=== PATIENT | female | born 1980 | race Caucasian/White ===

== ENCOUNTER 2017-03-19 06:02 | Day surgery (SDC) | payer BC ==
[2017-03-19 07:17] VITALS: BMI 27.1
--- NOTE | 2017-03-19 07:44 | HP ---
Admitting History and Physical - Admission History of Present Illness: patient is a 36 y/o female with a past medical history of IDDM, hypothyroidism , and bipolar disorder. Patient presents for ect, she was recently admitted to [facility] for psychosis and discharged on 03/16/17. She reports received 10 ect treatments at [place]. Patient reports improvement in symptoms since starting ect. she denies any suicidal or homicidal ideation, visual or auditory hallucinations. History Source: Patient Limitations to Obtaining History: No Limitations - Past Medical History ...LMP: 03/09/17 ...: No Endocrine: Yes: Diabetes Mellitus, Hypothyroidism - Past Surgical History Past Surgical History: Yes: None - Smoking History Smoking history: Never smoked Have you smoked in the past 12 months: No - Alcohol/Substance Use Hx Alcohol Use: No - Social History Usual Living Arrangement: Yes: With Spouse ADL: Independent Occupation: recepionsist on medical leave History of Recent Travel: No Home Medications - Allergies Allergies/Adverse Reactions: Allergies Allergy/AdvReac Type Severity Reaction Status Date / Time No Known Drug Allergies Allergy Verified 03/19/17 06:53 - Home Medications Home Medications: Ambulatory Orders Bupropion HCl [Wellbutrin Xl] 300 mg PO DAILY 03/19/17 Insulin (Novolog) [Novolog Flexpen] 50 units SQ DAILY 03/19/17 Lamotrigine [Lamotrigine ER] 50 mg PO DAILY 03/19/17 Levothyroxine Sodium [Synthroid] 88 mcg PO DAILY 03/19/17 Lurasidone HCl [Latuda] 40 mg PO HS 03/19/17 Family Disease History - Family Disease History Family History: Denies Review of Systems - Review of Systems Constitutional: reports: No Symptoms Eyes: reports: No Symptoms HENT: reports: No Symptoms Neck: reports: No Symptoms Cardiovascular: reports: No Symptoms Respiratory: reports: No Symptoms Gastrointestinal: reports: No Symptoms Genitourinary: reports: No Symptoms Musculoskeletal: reports: No Symptoms Integumentary: reports: No Symptoms Neurological: reports: No Symptoms Endocrine: reports: No Symptoms Hematology/Lymphatic: reports: No Symptoms Psychiatric: reports: No Symptoms Physical Examination Vital Signs: Vital Signs Temperature 97.9 F 03/19/17 07:01 Pulse Rate 68 03/19/17 07:01 Respiratory Rate 18 03/19/17 07:01 Blood Pressure 96/60 03/19/17 07:01 O2 Sat by Pulse Oximetry (%) 97 03/19/17 07:01 Constitutional: Yes: Well Nourished, No Distress, Calm Eyes: Yes: WNL, Conjunctiva Clear, EOM Intact HENT: Yes: WNL, Atraumatic, Normocephalic Neck: Yes: WNL, Supple, Trachea Midline Cardiovascular: Yes: WNL, Regular Rate and Rhythm, S1, S2 Respiratory: Yes: WNL, Regular, CTA Bilaterally Gastrointestinal: Yes: WNL, Normal Bowel Sounds, Soft ...Rectal Exam: Yes: Deferred Renal/: Yes: WNL Musculoskeletal: Yes: WNL Extremities: Yes: WNL Edema: No Peripheral Pulses WNL: Yes Peripheral Pulses: Left Radial: 4+, Right Radial: 4+, Left Doralis Pedis: 3+, Right Dorsalis Pedis: 3+, Left Femoral: 3+, Right Femoral: 3+ Integumentary: Yes: WNL Neurological: Yes: WNL, Alert, Oriented ...Motor Strength: WNL Psychiatric: Yes: WNL, Alert, Oriented Labs: reviewed 02/19/17 Imaging - Results EKG: Report Reviewed, Image Reviewed, Other (nsr no ischemic changes) Assessment/Plan patient is a 36 y/o female that presents for ect, labs and ekg reviewed patient is medically optimized for procedure informed consent, risks/benefits to be obtained by Dr Fair
[2017-03-19] MEDS ORDERED: ACETAMINOPHEN 325 MG TABLET (FP) PO PRN (09:52)
[2017-03-19] MEDS ORDERED: ONDANSETRON 4 MG/2 ML VIAL IVPUSH PRN (09:52)
[2017-03-19 11:04] VITALS: TEMP 98.1
[2017-03-19 11:05] VITALS: BP 102/62; PULSE 84
== END 2017-03-19 10:35 | disposition home or self-care (01) ==
LOC: FECT 06:02
PROVIDERS: ATTEND Psychiatry & Neurology Psychiatry
PROC: GZB4ZZZ Other Electroconvulsive Therapy (ICD-10-PCS; principal; 2017-03-19 08:15)
DX: F33.2 Major depressive disorder, recurrent severe without psychotic features (principal)
CPT/HCPCS: 84703; 90870; 94760

== ENCOUNTER 2017-03-23 05:47 | Day surgery (SDC) | payer BC ==
[2017-03-19 17:21] VITALS: BMI 27.1
[2017-03-23] MEDS ORDERED: KETAMINE HCL 500 MG/10 ML VIAL ONE (07:31)
[2017-03-23] MEDS ORDERED: ACETAMINOPHEN 325 MG TABLET (FP) PO PRN (07:56)
[2017-03-23] MEDS ORDERED: LACTATED RINGERS SOLUTION 1,000 ML IV SCH (08:00)
[2017-03-23 08:56] VITALS: TEMP 98
[2017-03-23 08:58] VITALS: BP 112/71; PULSE 62
== END 2017-03-23 08:50 | disposition home or self-care (01) ==
LOC: FECT 05:47
PROVIDERS: ATTEND Psychiatry & Neurology Psychiatry
PROC: GZB4ZZZ Other Electroconvulsive Therapy (ICD-10-PCS; principal; 2017-03-23 08:15)
DX: F33.2 Major depressive disorder, recurrent severe without psychotic features (principal)
CPT/HCPCS: 84703; 90870; 94760

== ENCOUNTER 2017-03-29 06:05 | Day surgery (SDC) | payer BC ==
[2017-03-27 13:11] VITALS: BMI 27.1
[2017-03-29] MEDS ORDERED: KETAMINE HCL 500 MG/10 ML VIAL ONE (07:01)
[2017-03-29] MEDS ORDERED: LACTATED RINGERS SOLUTION 1,000 ML IV SCH (07:15)
[2017-03-29] MEDS ORDERED: MIDAZOLAM HCL 2 MG/2 ML SINGLE DOSE VIAL ONE (07:18)
[2017-03-29] MEDS ORDERED: ACETAMINOPHEN/CAFFEINE/BUTALBITAL 1 TAB ONE (07:49)
[2017-03-29 08:08] VITALS: TEMP 97.6
[2017-03-29 08:52] VITALS: BP 115/73; PULSE 76
== END 2017-03-29 08:55 | disposition home or self-care (01) ==
LOC: FECT 06:05
PROVIDERS: ATTEND Psychiatry & Neurology Psychiatry
PROC: GZB4ZZZ Other Electroconvulsive Therapy (ICD-10-PCS; principal; 2017-03-29 08:00)
DX: F33.2 Major depressive disorder, recurrent severe without psychotic features (principal)
CPT/HCPCS: 84703; 90870; 94760

== ENCOUNTER 2017-04-05 05:42 | Day surgery (SDC) | payer BC ==
[2017-04-04 13:49] VITALS: BMI 27.1
[2017-04-05 06:17] VITALS: TEMP 98
[2017-04-05] MEDS ORDERED: ACETAMINOPHEN/CAFFEINE/BUTALBITAL 1 TAB ONE (07:01)
[2017-04-05] MEDS ORDERED: MIDAZOLAM HCL 2 MG/2 ML SINGLE DOSE VIAL ONE ×2 (07:15→07:18)
[2017-04-05] MEDS ORDERED: LACTATED RINGERS SOLUTION 1,000 ML IV SCH (07:15)
[2017-04-05] MEDS ORDERED: KETAMINE HCL 500 MG/10 ML VIAL ONE (07:19)
[2017-04-05 08:48] VITALS: BP 99/74; PULSE 76
== END 2017-04-05 08:35 | disposition home or self-care (01) ==
LOC: FECT 05:42
PROVIDERS: ATTEND Psychiatry & Neurology Psychiatry
PROC: GZB4ZZZ Other Electroconvulsive Therapy (ICD-10-PCS; principal; 2017-04-05 08:00)
DX: F33.2 Major depressive disorder, recurrent severe without psychotic features (principal)
CPT/HCPCS: 84703; 90870; 94760

== ENCOUNTER 2017-04-20 05:45 | Day surgery (SDC) | payer BC ==
[2017-04-06 11:26] VITALS: BMI 27.1
--- NOTE | 2017-04-20 08:06 | HP ---
Admitting History and Physical - Admission History of Present Illness: Patient is a 36 y/o female with a past medical history of IDDM, hypothyroidism, and bipolar disorder. Patient presents for ect, her last ect was 04/05/17. Patient reports feeling much improved since starting ECT, she denies any changes in medications. Patient denies any recent illness or hospitalizations. She denies any suicidal or homicidal ideation, visual or auditory hallucinations. 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 Travel: No Home Medications - Allergies Allergies/Adverse Reactions: Allergies Allergy/AdvReac Type Severity Reaction Status Date / Time No Known Drug Allergies Allergy Verified 03/19/17 06:53 - Home Medications Home Medications: Ambulatory Orders Bupropion HCl [Wellbutrin Xl] 300 mg PO DAILY 03/19/17 Insulin (Novolog) [Novolog Flexpen -] 50 units SQ DAILY 03/19/17 Lamotrigine [Lamotrigine ER] 50 mg PO DAILY 03/19/17 Levothyroxine Sodium [Synthroid] 88 mcg PO DAILY 03/19/17 Lurasidone HCl [Latuda] 40 mg PO HS 03/19/17 Family Disease History - Family Disease History Family History: Denies Review of Systems - Review of Systems Constitutional: reports: No Symptoms Eyes: reports: No Symptoms HENT: reports: No Symptoms Neck: reports: No Symptoms Cardiovascular: reports: No Symptoms Respiratory: reports: No Symptoms Gastrointestinal: reports: No Symptoms Genitourinary: reports: No Symptoms Musculoskeletal: reports: No Symptoms Integumentary: reports: No Symptoms Neurological: reports: No Symptoms Endocrine: reports: No Symptoms Hematology/Lymphatic: reports: No Symptoms Psychiatric: reports: No Symptoms Physical Examination Constitutional: Yes: Well Nourished, No Distress, Calm Eyes: Yes: WNL, Conjunctiva Clear, EOM Intact HENT: Yes: WNL, Atraumatic, Normocephalic Neck: Yes: WNL, Supple, Trachea Midline Cardiovascular: Yes: WNL, Regular Rate and Rhythm, S1, S2 Respiratory: Yes: WNL, Regular, CTA Bilaterally Gastrointestinal: Yes: WNL, Normal Bowel Sounds, Soft ...Rectal Exam: Yes: Deferred Renal/: Yes: WNL Breast(s): Yes: WNL Musculoskeletal: Yes: WNL Extremities: Yes: WNL Edema: No Peripheral Pulses WNL: Yes Peripheral Pulses: Left Radial: 4+, Right Radial: 4+, Left Doralis Pedis: 3+, Right Dorsalis Pedis: 3+, Left Femoral: 3+, Right Femoral: 3+ Integumentary: Yes: WNL Neurological: Yes: WNL, Alert, Oriented ...Motor Strength: WNL Psychiatric: Yes: WNL, Alert, Oriented Labs: reviewed 02/23 Imaging - Results EKG: Report Reviewed, Image Reviewed, Other (nsr) Assessment/Plan patient is a 36 y/o female that presents for ect, labs and ekg reviewed patient is medically optimized for procedure informed consent, risks/benefits to be obtained by Dr Fair
[2017-04-20] MEDS ORDERED: MIDAZOLAM HCL 2 MG/2 ML SINGLE DOSE VIAL ONE (08:44)
[2017-04-20] MEDS ORDERED: KETAMINE HCL 500 MG/10 ML VIAL ONE (08:45)
[2017-04-20 09:55] VITALS: TEMP 98.4
[2017-04-20 10:25] VITALS: BP 108/66; PULSE 86
== END 2017-04-20 10:26 | disposition home or self-care (01) ==
LOC: FECT 05:45
PROVIDERS: ATTEND Psychiatry & Neurology Psychiatry
PROC: GZB4ZZZ Other Electroconvulsive Therapy (ICD-10-PCS; principal; 2017-04-20 07:45)
DX: F33.2 Major depressive disorder, recurrent severe without psychotic features (principal)
CPT/HCPCS: 82962; 84703; 90870; 94760

== ENCOUNTER 2017-04-27 05:41 | Day surgery (SDC) | payer BC ==
[2017-04-20 13:48] VITALS: BMI 27.1
[2017-04-27 06:15] VITALS: TEMP 97.8
[2017-04-27] MEDS ORDERED: KETAMINE HCL 500 MG/10 ML VIAL ONE (06:57)
[2017-04-27] MEDS ORDERED: MIDAZOLAM HCL 2 MG/2 ML SINGLE DOSE VIAL ONE (07:18)
[2017-04-27 08:36] VITALS: BP 110/72; PULSE 81
== END 2017-04-27 08:45 | disposition home or self-care (01) ==
LOC: FECT 05:41
PROVIDERS: ATTEND Psychiatry & Neurology Psychiatry
PROC: GZB4ZZZ Other Electroconvulsive Therapy (ICD-10-PCS; principal; 2017-04-27 07:30)
DX: F33.2 Major depressive disorder, recurrent severe without psychotic features (principal)
CPT/HCPCS: 82962; 84703; 90870; 94760

== ENCOUNTER 2017-05-11 05:40 | Day surgery (SDC) | payer BC ==
[2017-05-07 08:20] VITALS: BMI 27.1
[2017-05-11] MEDS ORDERED: MIDAZOLAM HCL 2 MG/2 ML SINGLE DOSE VIAL ONE (06:56)
[2017-05-11] MEDS ORDERED: KETAMINE HCL 500 MG/10 ML VIAL ONE (06:56)
[2017-05-11 07:52] VITALS: TEMP 98
[2017-05-11 08:36] VITALS: BP 114/70; PULSE 86
== END 2017-05-11 08:20 | disposition home or self-care (01) ==
LOC: FECT 05:40
PROVIDERS: ATTEND Psychiatry & Neurology Psychiatry
PROC: GZB4ZZZ Other Electroconvulsive Therapy (ICD-10-PCS; principal; 2017-05-11 07:30)
DX: F33.2 Major depressive disorder, recurrent severe without psychotic features (principal)
CPT/HCPCS: 82962; 84703; 90870; 94760

== ENCOUNTER 2017-05-24 05:40 | Day surgery (SDC) | payer BC ==
[2017-05-17 16:17] VITALS: BMI 27.1
[2017-05-24 06:19] VITALS: TEMP 98.2
--- NOTE | 2017-05-24 07:03 | HP ---
Admitting History and Physical - Admission History of Present Illness: Patient is a 36 y/o female with a past medical history of IDDM, hypothyroidism, and bipolar disorder. Patient presents for ect, her last ect was 05/11/17. Patient reports a significant improvement in depressive symptoms since starting ect. She denies any changes in medications. patient reports compliance with prescribed medications. She denies any suicidal or homicidal ideation, visual or auditory hallucinations. 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 Travel: No Home Medications - Allergies Allergies/Adverse Reactions: Allergies Allergy/AdvReac Type Severity Reaction Status Date / Time No Known Drug Allergies Allergy Verified 04/20/17 13:48 - Home Medications Home Medications: Ambulatory Orders Bupropion HCl [Wellbutrin Xl] 300 mg PO DAILY 03/19/17 Insulin (Novolog) [Novolog Flexpen -] 50 units SQ DAILY 03/19/17 Lamotrigine [Lamotrigine ER] 200 mg PO HS 03/19/17 Levothyroxine Sodium [Synthroid] 88 mcg PO DAILY 03/19/17 Lurasidone HCl [Latuda] 40 mg PO HS 03/19/17 Lamotrigine [Lamotrigine ER] 50 mg PO HS 05/24/17 Family Disease History - Family Disease History Family History: Denies Review of Systems - Review of Systems Constitutional: reports: No Symptoms Eyes: reports: No Symptoms HENT: reports: No Symptoms Neck: reports: No Symptoms Cardiovascular: reports: No Symptoms Respiratory: reports: No Symptoms Gastrointestinal: reports: No Symptoms Genitourinary: reports: No Symptoms Musculoskeletal: reports: No Symptoms Integumentary: reports: No Symptoms Neurological: reports: No Symptoms Endocrine: reports: No Symptoms Hematology/Lymphatic: reports: No Symptoms Psychiatric: reports: No Symptoms Physical Examination Vital Signs: Vital Signs Temperature 98.2 F 05/24/17 06:04 Pulse Rate 81 05/24/17 06:04 Respiratory Rate 18 05/24/17 06:04 Blood Pressure 96/64 05/24/17 06:04 O2 Sat by Pulse Oximetry (%) 100 05/24/17 06:04 Constitutional: Yes: Well Nourished, No Distress, Calm Eyes: Yes: WNL, Conjunctiva Clear, EOM Intact HENT: Yes: WNL, Atraumatic, Normocephalic Neck: Yes: WNL, Supple, Trachea Midline Cardiovascular: Yes: WNL, Regular Rate and Rhythm, S1, S2 Respiratory: Yes: WNL, Regular, CTA Bilaterally Gastrointestinal: Yes: WNL, Normal Bowel Sounds, Soft ...Rectal Exam: Yes: Deferred Renal/: Yes: WNL Musculoskeletal: Yes: WNL Extremities: Yes: WNL Edema: No Edema: LUE: 4+, RUE: 4+, LLE: 3+, RLE: 3+ Peripheral Pulses WNL: Yes Peripheral Pulses: Left Radial: 4+, Right Radial: 4+, Left Doralis Pedis: 3+, Right Dorsalis Pedis: 3+, Left Femoral: 3+, Right Femoral: 3+ Integumentary: Yes: WNL Neurological: Yes: WNL, Alert, Oriented ...Motor Strength: WNL Psychiatric: Yes: WNL, Alert, Oriented Labs: reviewed 02/23 Imaging - Results EKG: Image Reviewed, Other (nsr) Assessment/Plan patient is a 36 y/o female that presents for ect, labs and ekg reviewed patient is medically optimized for procedure informed consent, risks/benefits to be obtained by Dr Fair
[2017-05-24] MEDS ORDERED: MIDAZOLAM HCL 2 MG/2 ML SINGLE DOSE VIAL ONE (07:05)
[2017-05-24] MEDS ORDERED: KETAMINE HCL 500 MG/10 ML VIAL ONE (07:06)
[2017-05-24] MEDS ORDERED: ONDANSETRON 4 MG/2 ML VIAL IVPUSH PRN (07:48)
[2017-05-24 08:46] VITALS: BP 118/76; PULSE 84
== END 2017-05-24 08:50 | disposition home or self-care (01) ==
LOC: FECT 05:40
PROVIDERS: ATTEND Psychiatry & Neurology Psychiatry
PROC: GZB4ZZZ Other Electroconvulsive Therapy (ICD-10-PCS; principal; 2017-05-24 07:00)
DX: F33.2 Major depressive disorder, recurrent severe without psychotic features (principal)
CPT/HCPCS: 82962; 84703; 90870; 94760

== ENCOUNTER 2017-06-08 05:40 | Day surgery (SDC) | payer BC ==
[2017-05-29 10:43] VITALS: BMI 27.1
[2017-06-08] MEDS ORDERED: KETAMINE HCL 500 MG/10 ML VIAL ONE (06:57)
[2017-06-08] MEDS ORDERED: MIDAZOLAM HCL 2 MG/2 ML SINGLE DOSE VIAL ONE (06:59)
[2017-06-08 07:55] VITALS: TEMP 98.2
[2017-06-08] MEDS ORDERED: ONDANSETRON 4 MG/2 ML VIAL IVPUSH PRN (08:15)
[2017-06-08] MEDS ORDERED: PROMETHAZINE HCL 25 MG/1 ML VIAL IVPUSH PRN (08:15)
[2017-06-08 08:38] VITALS: BP 106/68; PULSE 90
== END 2017-06-08 08:30 | disposition home or self-care (01) ==
LOC: FECT 05:40
PROVIDERS: ATTEND Psychiatry & Neurology Psychiatry
PROC: GZB4ZZZ Other Electroconvulsive Therapy (ICD-10-PCS; principal; 2017-06-08 08:00)
DX: F33.2 Major depressive disorder, recurrent severe without psychotic features (principal)
CPT/HCPCS: 82962; 84703; 90870; 94760

== ENCOUNTER 2017-07-06 05:46 | Day surgery (SDC) | payer BC ==
[2017-07-06 06:24] VITALS: BMI 25.2
--- NOTE | 2017-07-06 07:00 | HP ---
HISTORY OF PRESENT ILLNESS: Patient is a 36 y/o female with a past medical history of IDDM, hypothyroidism, and bipolar disorder. Patient presents for ect, her last ect was 05/11/17. Patient reports a significant improvement in depressive symptoms since starting ect. She denies any changes in medications. patient reports compliance with prescribed medications. She denies any suicidal or homicidal ideation, visual or auditory hallucinations. History Source: Patient PAST MEDICAL HISTORY: bipolar depression, hypothyroidism, DM with insulin pump PAST SURGICAL HISTORY: monthly ECT Social History: Smoking:denies Alcohol:denies Drugs: denies Family History: Allergies No Known Drug Allergies Allergy (Verified 04/20/17 13:48) HOME MEDICATIONS: Home Medications Medication Instructions Recorded Bupropion HCl [Wellbutrin Xl] 300 mg PO DAILY 03/19/17 Insulin (Novolog) [Novolog Flexpen 50 units SQ DAILY 03/19/17 -] Lamotrigine [Lamotrigine ER] 300 mg PO HS 03/19/17 Levothyroxine Sodium [Synthroid] 88 mcg PO DAILY 03/19/17 Lurasidone HCl [Latuda] 40 mg PO HS 03/19/17 clonazePAM [Klonopin -] 0.5 mg PO BID 06/08/17 REVIEW OF SYSTEMS CONSTITUTIONAL: Absent: fever, chills, diaphoresis, generalized weakness, malaise, loss of appetite, weight change HEENT: Absent: rhinorrhea, nasal congestion, throat pain, throat swelling, difficulty swallowing, mouth swelling, ear pain, eye pain, visual changes CARDIOVASCULAR: Absent: chest pain, syncope, palpitations, irregular heart rate, lightheadedness , peripheral edema RESPIRATORY: Absent: cough, shortness of breath, dyspnea with exertion, orthopnea, wheezing, stridor, hemoptysis GASTROINTESTINAL: Absent: abdominal pain, abdominal distension, nausea, vomiting, diarrhea, constipation, melena, hematochezia GENITOURINARY: Absent: dysuria, frequency, urgency, hesitancy, hematuria, flank pain, genital pain MUSCULOSKELETAL: Absent: myalgia, arthralgia, joint swelling, back pain, neck pain SKIN: Absent: rash, itching, pallor HEMATOLOGIC/IMMUNOLOGIC: Absent: easy bleeding, easy bruising, lymphadenopathy, frequent infections ENDOCRINE: Absent: unexplained weight gain, unexplained weight loss, heat intolerance, cold intolerance NEUROLOGIC: Absent: headache, focal weakness or paresthesias, dizziness, unsteady gait, seizure, mental status changes, bladder or bowel incontinence PSYCHIATRIC: Absent: anxiety, depression, suicidal or homicidal ideation, hallucinations. PHYSICAL EXAMINATION Vital Signs - 24 hr 07/06/17 06:21 Temperature 98 F Pulse Rate 75 Respiratory 18 Rate Blood Pressure 95/65 O2 Sat by Pulse 98 Oximetry (%) GENERAL: Awake, alert, and fully oriented, in no acute distress. HEAD: Normal with no signs of trauma. EYES: Pupils equal, round and reactive to light, extraocular movements intact, sclera anicteric, conjunctiva clear. No lid lag. EARS, NOSE, THROAT: Ears normal, nares patent, oropharynx clear without exudates. Moist mucous membranes. NECK: Normal range of motion, supple without lymphadenopathy, JVD, or masses. LUNGS: Breath sounds equal, clear to auscultation bilaterally. No wheezes, and no crackles. No accessory muscle use. HEART: Regular rate and rhythm, normal S1 and S2 without murmur, rub or gallop. ABDOMEN: Soft, nontender, not distended, normoactive bowel sounds, no guarding, no rebound, no masses. No hepatomegaly or splenomegaly. MUSCULOSKELETAL: Normal range of motion at all joints. No bony deformities or tenderness. No CVA tenderness. UPPER EXTREMITIES: 2+ pulses, warm, well-perfused. No cyanosis. No clubbing. No peripheral edema. LOWER EXTREMITIES: 2+ pulses, warm, well-perfused. No calf tenderness. No peripheral edema. NEUROLOGICAL: Cranial nerves II-XII intact. Normal speech. Normal gait. PSYCHIATRIC: Cooperative. Good eye contact. Appropriate mood and affect. SKIN: Warm, dry, normal turgor, no rashes or lesions noted, normal capillary refill. Laboratory Results - last 24 hr 07/06/17 06:26 POC Glucometer 101 ASSESSMENT/PLAN: patient is a 36 y/o female that presents for ect, patient is medically optimized for procedure informed consent, risks/benefits to be obtained by Dr Fair Visit type - Emergency Visit Emergency Visit: No - New Patient This patient is new to me today: Yes Date on this admission: 07/06/17 - Critical Care Critical Care patient: No Hospitalist Screening - Colonoscopy Questionnaire Colonoscopy Questionnaire: Colonoscopy Questionnaire - Patient: 50 - 75 years old and never had a screening colonoscopy: No History of colon or rectal polyps, or CA: No History of IBD, Crohn's disease or UC: No History of abdominal radiation therapy as a child: No - Relative: 1 with colon or rectal CA, or polyps at age 60 or younger: No Colon or rectal CA diagnosed at age 45 or younger: No Multiple relatives with colon or rectal CA: No - Outcome: Screening Result: Negative Screen
[2017-07-06] MEDS ORDERED: KETAMINE HCL 500 MG/10 ML VIAL ONE (07:25)
[2017-07-06] MEDS ORDERED: MIDAZOLAM HCL 2 MG/2 ML SINGLE DOSE VIAL ONE (07:39)
[2017-07-06 08:21] VITALS: TEMP 97.6
[2017-07-06 09:06] VITALS: BP 107/70; PULSE 79
== END 2017-07-06 09:13 | disposition home or self-care (01) ==
LOC: FECT 05:46
PROVIDERS: ATTEND Psychiatry & Neurology Psychiatry
PROC: GZB4ZZZ Other Electroconvulsive Therapy (ICD-10-PCS; principal; 2017-07-06 07:30)
DX: F33.2 Major depressive disorder, recurrent severe without psychotic features (principal)
CPT/HCPCS: 82962; 84703; 90870; 94760

== ENCOUNTER 2021-01-03 14:42 | Emergency (ER) | payer OTHER, BC ==
[2021-01-03 15:17] VITALS: BP 111/69; PULSE 66; TEMP 98; BMI 25.0
[2021-01-03 18:18] LABS: HEMATOCRIT 41.1 % (32.4-45.2); HEMOGLOBIN 13.8 GM/dL (10.7-15.3); MCH 30.3 pg (25.7-33.7); MCHC 33.6 g/dl (32.0-36.0); MEAN CELL VOLUME 90.1 fl (80-96); MEAN PLT VOLUME 8.5 fl (7.5-11.1); PLATELET COUNT 235 10^3/uL (134-434); RBC 4.56 M/mm3 (3.60-5.2); RDW 14.1 % (11.6-15.6); WHITE BLOOD COUNT 7.5 K/mm3 (4.0-10.0)
[2021-01-03 18:51] LABS: CHLORIDE 106 mmol/L (98-107); SODIUM 136 mmol/L (136-145)
[2021-01-03 18:53] LABS: ANION GAP 5 MMOL/L (8-16); BLOOD UREA NITROGEN 11.4 mg/dL (7-18); CO2 25 mmol/L (21-32); GLUCOSE,RANDOM 137 mg/dL (74-106)
[2021-01-03 18:54] LABS: CALCIUM 9.1 mg/dL (8.5-10.1)
[2021-01-03 18:56] LABS: CREATININE 0.8 mg/dL (0.55-1.3); SGOT/AST 15 U/L (15-37); SGPT/ALT 16 U/L (13-61)
[2021-01-03 18:58] LABS: BILIRUBIN,TOTAL 0.3 mg/dL (0.2-1); TOT PROT 7.4 g/dl (6.4-8.2)
[2021-01-03 18:59] LABS: ALK PHOS 52 U/L (45-117)
== END 2021-01-03 20:19 | disposition home or self-care (01) ==
LOC: JERFT 14:42 → JER 14:42 → JERFT 20:19
DX: S06.0X0A Concussion without loss of consciousness, initial encounter (principal); V49.50XA Passenger injured in collision with unspecified motor vehicles in traffic accident, initial encounter
CPT/HCPCS: 36415; 70450-TC; 72125-TC; 74177-TC; 80053; 84702; 85027; 99285-25; Q9967